=== PATIENT | female | born 1985 | race Caucasian/White ===

== ENCOUNTER 2022-05-29 12:18 | Outpatient (CLI) | payer BC ==
[~2022-05-29] VITALS: Ht 172.7 cm; Wt 122.7 kg
[2022-05-29] MEDS ORDERED: FLUO40CA12 PO (12:45)
[2022-05-29] MEDS ORDERED: NF-ESOM40C PO (12:45)
[2022-05-29] MEDS ORDERED: LIRA0.6P3 SQ (12:45)
[2022-05-29] MEDS ORDERED: CETI10TA49 PO (12:45)
== END 2022-05-29 12:55 | disposition home or self-care (01) ==
LOC: PREOP 12:18
PROVIDERS: ATTEND Otolaryngology Otolaryngology/Facial Plastic Surgery
DX: Z01.818 Encounter for other preprocedural examination (principal)

== ENCOUNTER 2022-05-30 06:03 | Day surgery (SDC) | payer BC ==
[2022-05-30] VITALS (13 sets, daily range): BP systolic 126–154; BP diastolic 72–89
[~2022-05-30] VITALS: Ht 172.7 cm; Wt 122.7 kg
[~2022-05-30 06:03] MED LIST: CETI10TA49 PO; FLUO40CA12 PO; LIRA0.6P3 SQ; NF-ESOM40C PO
[2022-05-30] MEDS ORDERED: CLINDAMYCIN 900 MG/50 ML IVPB 50 ML IV ONE (06:15)
[2022-05-30] MEDS ORDERED: HYDROCORTISONE 100 MG/2 ML (Solu-CORTEF) VIAL IV ONE (06:15)
[2022-05-30] MEDS ORDERED: COCAINE HCL 4% 2 ML SYR ONE (06:25)
[2022-05-30] MEDS ORDERED: BSS 15 ML ONE (06:25)
[2022-05-30] MEDS ORDERED: LIDOCAINE/EPI 1%-1:100,000 (XYLOCAINE) 30ML ONE (06:25)
[2022-05-30] MEDS ORDERED: PHENYLEPHRINE 0.5% NASAL SPR (NEO-SYNEPHRINE) REG ONE (06:25)
--- NOTE | 2022-05-30 06:34 | Progress Note-Pre Operative ---
Pre-Operative Progress Note Date of Available H&P: May 30, 2022 Date H&P Reviewed: May 30, 2022 Time H&P Reviewed: 06:30 History & Physical: H&P Reviewed, Patient Examed, No changes noted Changes from last HP none Pre-Operative Diagnosis: Right Chronic Sinusitis, Deviated Nasal Septum, Bilat Hyper of Inf Turbs DOMINICK WEINER MD May 30, 2022 06:34
--- NOTE | 2022-05-30 06:35 | Progress Note-Post Operative ---
Post-Operative Progess Note Surgeon (s)/Chief Investment Officer (s) Surgeon DOMINICK WEINER MD Chief Investment Officer n/a Pre-Operative Diagnosis Right Chronic Sinusitis, Deviated Nasal Septum, Bilat Hyper of Inf Turbs Post-Operative Diagnosis same Post-Op Procedure Note Date of Procedure: May 30, 2022 Name of Procedure Performed: Right ESS, Nasal Septoplasty, Bilat PArtial REd of Inf Turbs Description & Findings Description and Findings: n/a Anesthesia Type get Estimated Blood Loss minimal Packing none. Specimen(s) collected/removed cultures right maxillary sinus DOMINICK WEINER MD May 30, 2022 06:35
[2022-05-30] MEDS ORDERED: D5 1/2 NS W/KCL 20 MEQ/L 1,000 ML IV SCH (06:45)
[2022-05-30] MEDS ORDERED: FAMOTIDINE 20MG/2ML IV (PEPCID) IV ONE (06:45)
[2022-05-30] MEDS ORDERED: ONDANSETRON 4 MG/2 ML (SDV) Z0FRAN IV ONE (06:45)
[2022-05-30] MEDS ORDERED: PROMETHAZINE INJ 25 MG/ML (PHENERGAN) AMP IVP PRN (06:45)
[2022-05-30] MEDS ORDERED: oxyCODONE/APAP 5/325MG (PERCOCET 5) TABLET PO PRN (06:45)
[2022-05-30] MEDS ORDERED: predniSONE 20 MG TAB PO ONE ×2 (06:45→10:15)
[2022-05-30] MEDS ORDERED: SCOPOLAMINE 1.5 MG (TRANSDERM-SCOP) PATCH TOP ONE (06:45)
[2022-05-30 06:50] LABS: BASOPHILS % (AUTO) 0 % (0-10); EOSINOPHILS # (AUTO) 0.2 10^3/uL (0.0-0.3); EOSINOPHILS % (AUTO) 2 % (0-10); HEMATOCRIT 42 % (35-52); LYMPHOCYTES # (AUTO) 3.9 10^3/uL (1.0-4.0); LYMPHOCYTES % (AUTO) 39 % (12-44); MEAN CORPUSCULAR HEMOGLOBIN 31 pg (25-34); MEAN CORPUSCULAR HGB CONC 35 g/dL (32-36); MEAN CORPUSCULAR VOLUME 88 fL (80-99); MEAN PLATELET VOLUME 9.1 fL (9.0-12.2); MONOCYTES # (AUTO) 0.7 10^3/uL (0.0-1.0); MONOCYTES % (AUTO) 7 % (0-12); NEUTROPHILS # (AUTO) 5.3 10^3/uL (1.8-7.8); NEUTROPHILS % (AUTO) 52 % (42-75); PLATELET COUNT 249 10^3/uL (130-400); WHITE BLOOD COUNT 10.1 10^3/uL (4.3-11.0)
[2022-05-30] MEDS ORDERED: proPOfol 200 MG/20 ML (DIPRIVAN) VIAL IV ONE (06:50)
[2022-05-30] MEDS ORDERED: LIDOCAINE PF 2% 5 ML (XYLOCAINE) VIAL ONE (06:50)
[2022-05-30] MEDS ORDERED: ROCURONIUM 50 MG/5 ML (ZEMURON) VIAL IV ONE (06:50)
[2022-05-30] MEDS ORDERED: diphenhydrAMINE 50 MG/ML INJ (BENADRYL) ONE (06:50)
[2022-05-30] MEDS ORDERED: ONDANSETRON 4 MG/2 ML (SDV) Z0FRAN ONE (06:50)
[2022-05-30] MEDS ORDERED: fentaNYL INJ 100 MCG/2 ML AMP ONE (06:51)
[2022-05-30] MEDS ORDERED: MIDAZOLAM 2 MG/2 ML (VERSED) VIAL ONE (06:51)
[2022-05-30] MEDS: LACTATED RINGERS 1,000 ML IV PRN ×2 (06:54→07:50)
[2022-05-30 07:06] LABS: CALCIUM 9.2 MG/DL (8.5-10.1); CREATININE SERUM 0.78 MG/DL (0.60-1.30); POTASSIUM 3.3 MMOL/L (3.6-5.0)
[2022-05-30] MEDS ORDERED: COCAINE HCL 4% 2 ML SYR NS ONE (07:37)
[2022-05-30] MEDS ORDERED: PHENYLEPHRINE 0.5% NASAL SPR (NEO-SYNEPHRINE) REG NS ONE (07:38)
[2022-05-30] MEDS ORDERED: BSS 15 ML IR ONE (07:38)
[2022-05-30] MEDS ORDERED: LIDOCAINE/EPI 1%-1:100,000 (XYLOCAINE) 30ML INJ ONE (07:53)
[2022-05-30] MEDS ORDERED: GLYCOPYRROLATE 0.2 MG/ML (ROBINUL) 2 ML VIAL ONE (08:07)
[2022-05-30] MEDS ORDERED: NEOSTIGMINE (BLOXIVERZ ) 1 MG/1ML 10 ML VIAL ONE (08:07)
[2022-05-30] MEDS ORDERED: MUPIROCIN 2% OINT 22 GM (BACTROBAN) TUBE ONE (08:18)
[2022-05-30] MEDS ORDERED: SEVOFLURANE (ULTANE) 15 ML INHAL SOLN ONE (08:27)
[2022-05-30] MEDS ORDERED: MUPIROCIN 2% OINT 22 GM (BACTROBAN) TUBE TOP ONE (08:30)
[2022-05-30] MEDS ORDERED: morphine INJ 10 MG/ML 1ML (SYR OR VIAL) ONE (08:37)
[2022-05-30] MEDS ORDERED: morphine INJ 10 MG/ML 1ML (SYR OR VIAL) IVP ONE (08:45)
[2022-05-30] MEDS: ONDANSETRON 4 MG/2 ML (SDV) Z0FRAN IVP PRN ×2 (09:39→10:14)
[2022-05-30] MEDS ORDERED: oxyCODONE/APAP 5/325MG (PERCOCET 5) TABLET ONE (10:06)
--- NOTE | 2022-05-30 10:08 | Anesthesia-General Post-Op ---
General Patient Condition Mental Status/LOC: Same as Preop Cardiovascular: Satisfactory Nausea/Vomiting: Absent Respiratory: Satisfactory Pain: Controlled Complications: Absent Post Op Complications Complications None Follow Up Care/Instructions Patient Instructions None needed. Anesthesia/Patient Condition Patient Condition Patient is doing well, no complaints, stable vital signs, no apparent adverse anesthesia problems. No complications reported per nursing. KANDICE STEWART CRNA May 30, 2022 10:08
== END 2022-05-30 10:40 ==
LOC: SDC 06:03
PROVIDERS: ATTEND Otolaryngology Otolaryngology/Facial Plastic Surgery
DX: J32.8 Other chronic sinusitis (principal); J34.2 Deviated nasal septum; R09.81 Nasal congestion; J34.3 Hypertrophy of nasal turbinates; J34.89 Other specified disorders of nose and nasal sinuses; E66.01 Morbid (severe) obesity due to excess calories; Z68.41 Body mass index [BMI] 40.0-44.9, adult
CPT/HCPCS: 36415; 80048; 84703; 85025; 87070; 87075; 87081; 87101; 87205; 93005